=== PATIENT | female | born 1945 | race Caucasian/White ===

== ENCOUNTER 2019-02-19 14:44 | Outpatient (CLI) | payer MEDICARE, OTHER, SELFPAY ==
--- NOTE | 2019-02-19 14:54 | MR_ITS ---
WS: [id number] MRI HEAD WITHOUT CONTRAST TECHNIQUE: Sagittal T1, T2 axial, T2 axial FLAIR, axial and coronal T1 images, axial susceptibility w eighted imaging, axial diffusion weighted images, and coronal T2 images were obtained. CLINICAL INFORMATION: ABNORMAL MOUTH SENSATION;SENSORY DISTURBANCE;VULVAR CA;NUMBN COMPARISON: CT September 06, 2017 FINDINGS: No evidence of restricted diffusion to suggest acute ischemia. Ventricular system and basal cisterns are patent. Moderate small vessel changes. Small vessel changes in the sharona. Moderate parenchymal vol ume loss. A few chronic lacunar infarcts in the periventricular white matter. Normal vascular flow vo ids at the skull base. No hemosiderin on susceptibly weighted images. Normal optic chiasm and pituitary infundibulum. Mild s ymmetric atrophy involving the temporal lobes and hippocampal formations. MR/MR head wo con* [id number] IMPRESSION: 1. No evidence of restricted diffusion to suggest acute ischemia. 2. Moderate small vessel changes with moderate parenchymal volume loss. 3. A few chronic lacunar infarcts in the periventricular white matter. 4. No hemosiderin on susceptibly weighted images. 5. Mild symmetric atrophy involving the temporal lobes and hippocampal formati ons.
== END 2019-02-19 14:45 | disposition home or self-care (01) ==
LOC: RADSHAW 14:50
PROVIDERS: Family Provider Family Medicine; PCP Family Medicine; Visit Provider Nurse Practitioner Family
DX: I63.81 Other cerebral infarction due to occlusion or stenosis of small artery (principal); G31.89 Other specified degenerative diseases of nervous system; C51.9 Malignant neoplasm of vulva, unspecified; R44.8 Other symptoms and signs involving general sensations and perceptions; R20.9 Unspecified disturbances of skin sensation; R20.2 Paresthesia of skin
CPT/HCPCS: 70551

== ENCOUNTER 2019-04-08 17:43 | Emergency (ER) | payer MEDICARE, OTHER, SELFPAY ==
--- NOTE | 2019-04-08 17:46 | ED_ITS ---
Entered by Ángela Yeager, acting as scribe for Julius Anderson DO Documented by User: Barbara Hendricks 04/09/19 06:22 HPI - Syncope General: Chief Complaint: Syncope Stated Complaint: SYNCOPE, htn Time Seen by Provider: 04/08/19 17:45 [facility] ED PFSH: Medical History (Updated 04/08/19 @ 23:01 by Barbara Hendricks) Cancer Diabetes Heart disease Hyperlipemia Hypertension Social History Smoking and tobacco status: never smoked Course Vital Signs: Vital signs: Vital Signs Temperature 98.6 F 04/08/19 23:38 Pulse Rate 87 04/08/19 23:38 Respiratory Rate 20 H 04/08/19 23:38 Blood Pressure 136/62 04/08/19 23:38 Pulse Oximetry 95 04/08/19 23:38 MDM - Syncope MDM Narrative: Medical decision making narrative: The CT scans were discussed with the radiologist. He believes with the findings of necrotizing fasciitis are present as 9 days out postoperatively he does not believe the patient should have this much gas in the tissues. The patient does have pain there but she does not believe any worse than she should expect after surgery. With her el evated white count and these findings I believe the patient will need to be evaluated by her surgeon. We do not have gynecologic/oncologic surgery here. I attempted to reach Dr. anabel peoples by phone but was unable. I did discuss the case with Dr. Stroud in the emergency department and Cee Hunt in [place]. She understands the seriousness of the patient's findings and will accept her in transfer. [facility] is currently on his way to the patient. I will cover the patient with Cleocin, Zosyn as well as Flagyl. Lab Data: Attestation: I reviewed the patient's lab results. Labs: Lab Results 04/08/19 04/08/19 04/08/19 Range/Units 18:11 18:11 18:11 WBC 16.2 H (4.0-10.0) 10^3/ uL RBC 3.56 L (4.1-5.3) 10^6/u L Hgb 10.5 L (11.5-15.3) g/dL Hct 33.6 L (37.0-47.0) % MCV 94.4 (81-99) fL MCH 29.5 (28.0-34.0) pg MCHC 31.3 (30.0-36.0) g/dL RDW 12.6 (12.1-15.1) % Plt Count 296 (130-400) 10^3/c mm MPV 9.9 (7.4-10.4) fL Neut % (Auto) 83.1 % Lymph % (Auto) 7.5 % [place] % (Auto) 8.4 % Eos % (Auto) 0.1 % Baso % (Auto) 0.4 % Neut # (Auto) 13.5 H (1.8-7.7) 10^3/u L Lymph # (Auto) 1.2 (0.8-4.8) 10^3/u L [place] # (Auto) 1.4 H (0.2-0.9) 10^3/u L Eos # (Auto) 0.0 (0.0-0.8) 10^3/u L Baso # (Auto) 0.1 (0.0-0.1) 10^3/u L Nucleated RBC % (a uto) 0 % Nucleated RBCs # 0.0 /100WBC D-Dimer (0-0.59) ug/mIFE U Sodium 134 L (136-145) mmol/L Potassium 3.8 (3.5-5.1) mmol/L Chloride 98 (98-107) mmol/L Carbon Dioxide 23 (22-29) mmol/L Anion Gap 16.8 (5-19) BUN 17 (8-23) mg/dL Creatinine 1.1 H (0.5-0.9) mg/dL Glucose 229 H (65-115) mg/dL Lactic Acid (0.5-2.2) mmol/L Calcium 8.8 (8.5-10.5) mg/dL Total Bilirubin 0.5 (0.15-1.2) mg/dL AST 10 (0-32) U/L ALT 11 (0-33) U/L Alkaline Phosphata se 78 (35-105) IU/L Troponin T Baselin e 11 H (0-10) ng/mL Troponin T 120 Min [place] (0-10) ng/mL Delta Troponin T (0-10) ABS# Total Protein 6.5 L (6.6-8.7) g/dL Albumin 3.2 L (3.5-5.2) g/dL Globulin 3.3 (1.3-4.6) g/dL Urine Color (Yellow) Urine Appearance (CLEAR) Urine pH (5-7) Ur Specific Gravit y (1.005-1.030) Urine Protein (Negative) Urine Glucose (UA) (Normal) Urine Ketones (Negative) Urine Blood (Negative) Urine Nitrate (Negative) Urine Bilirubin (NEGATIVE) Urine Urobilinogen (Negative) mg/dL Ur Leukocyte Casandra ase (Negative) Urine RBC (0-2) /hpf Urine WBC (0-5) /hpf Ur Squamous Epith Cells (0-5) Amorphous Sediment Urine Bacteria (NONE) 04/08/19 04/08/19 04/08/19 Range/Units 18:11 20:15 22:33 WBC (4.0-10.0) 10^3/ uL RBC (4.1-5.3) 10^6/u L Hgb (11.5-15.3) g/dL Hct (37.0-47.0) % MCV (81-99) fL MCH (28.0-34.0) pg MCHC (30.0-36.0) g/dL RDW (12.1-15.1) % Plt Count (130-400) 10^3/c mm MPV (7.4-10.4) fL Neut % (Auto) % Lymph % (Auto) % [place] % (Auto) % Eos % (Auto) % Baso % (Auto) % Neut # (Auto) (1.8-7.7) 10^3/u L Lymph # (Auto) (0.8-4.8) 10^3/u L [place] # (Auto) (0.2-0.9) 10^3/u L Eos # (Auto) (0.0-0.8) 10^3/u L Baso # (Auto) (0.0-0.1) 10^3/u L Nucleated RBC % (a uto) % Nucleated RBCs # /100WBC D-Dimer 1.00 H (0-0.59) ug/mIFE U Sodium (136-145) mmol/L Potassium (3.5-5.1) mmol/L Chloride (98-107) mmol/L Carbon Dioxide (22-29) mmol/L Anion Gap (5-19) BUN (8-23) mg/dL Creatinine (0.5-0.9) mg/dL Glucose (65-115) mg/dL Lactic Acid (0.5-2.2) mmol/L Calcium (8.5-10.5) mg/dL Total Bilirubin (0.15-1.2) mg/dL AST (0-32) U/L ALT (0-33) U/L Alkaline Phosphata se (35-105) IU/L Troponin T Baselin e (0-10) ng/mL Troponin T 120 Min [place] 9.35 (0-10) ng/mL Delta Troponin T -1.65 L (0-10) ABS# Total Protein (6.6-8.7) g/dL Albumin (3.5-5.2) g/dL Globulin (1.3-4.6) g/dL Urine Color Yellow (Yellow) Urine Appearance Sl cloudy A (CLEAR) Urine pH 5 (5-7) Ur Specific Gravit y 1.015 (1.005-1.030) Urine Protein 1+ H (Negative) Urine Glucose (UA) Norm (Normal) Urine Ketones Negative (Negative) Urine Blood 3+ H (Negative) Urine Nitrate Positive H (Negative) Urine Bilirubin Neg (NEGATIVE) Urine Urobilinogen Norm (Negative) mg/dL Ur Leukocyte Casandra ase 2+ H (Negative) Urine RBC 5-10 H (0-2) /hpf Urine WBC 15-25 H (0-5) /hpf Ur Squamous Epith Cells 5-10 H (0-5) Amorphous Sediment 2+ Urine Bacteria 2+ H (NONE) 04/08/19 Range/Units 23:16 WBC (4.0-10.0) 10^3/ uL RBC (4.1-5.3) 10^6/u L Hgb (11.5-15.3) g/dL Hct (37.0-47.0) % MCV (81-99) fL MCH (28.0-34.0) pg MCHC (30.0-36.0) g/dL RDW (12.1-15.1) % Plt Count (130-400) 10^3/c mm MPV (7.4-10.4) fL Neut % (Auto) % Lymph % (Auto) % [place] % (Auto) % Eos % (Auto) % Baso % (Auto) % Neut # (Auto) (1.8-7.7) 10^3/u L Lymph # (Auto) (0.8-4.8) 10^3/u L [place] # (Auto) (0.2-0.9) 10^3/u L Eos # (Auto) (0.0-0.8) 10^3/u L Baso # (Auto) (0.0-0.1) 10^3/u L Nucleated RBC % (a uto) % Nucleated RBCs # /100WBC D-Dimer (0-0.59) ug/mIFE U Sodium (136-145) mmol/L Potassium (3.5-5.1) mmol/L Chloride (98-107) mmol/L Carbon Dioxide (22-29) mmol/L Anion Gap (5-19) BUN (8-23) mg/dL Creatinine (0.5-0.9) mg/dL Glucose (65-115) mg/dL Lactic Acid 1.1 (0.5-2.2) mmol/L Calcium (8.5-10.5) mg/dL Total Bilirubin (0.15-1.2) mg/dL AST (0-32) U/L ALT (0-33) U/L Alkaline Phosphata se (35-105) IU/L Troponin T Baselin e (0-10) ng/mL Troponin T 120 Min [place] (0-10) ng/mL Delta Troponin T (0-10) ABS# Total Protein (6.6-8.7) g/dL Albumin (3.5-5.2) g/dL Globulin (1.3-4.6) g/dL Urine Color (Yellow) Urine Appearance (CLEAR) Urine pH (5-7) Ur Specific Gravit y (1.005-1.030) Urine Protein (Negative) Urine Glucose (UA) (Normal) Urine Ketones (Negative) Urine Blood (Negative) Urine Nitrate (Negative) Urine Bilirubin (NEGATIVE) Urine Urobilinogen (Negative) mg/dL Ur Leukocyte Casandra ase (Negative) Urine RBC (0-2) /hpf Urine WBC (0-5) /hpf Ur Squamous Epith Cells (0-5) Amorphous Sediment Urine Bacteria (NONE) EKG Data^: EKG 1: Attestation: I personally reviewed and interpreted this EKG as follows: EKG interpretation date: 04/08/19 EKG interpretation time: 21:02 Interpretation: Normal sinus rhythm at 87 beats a minute, no acute ST-T wave changes. Normal intervals, no blocks. Unchanged from previous. Discharge Plan Discharge Patient Disposition: Xfer Short-Term Hosp Clinical Impression: Necrotizing fasciitis Syncope Qualifiers: Syncope type: unspecified Qualified Code(s): R55 - Syncope and collapse Condition: Stable Referrals: Paula Hicks MD [Primary Care Provider] - Discharge Date/Time: 04/08/19 23:39 Sign Out Sign Out Data: Patient Sign Out occurred on 04/08/19 at 19:57. Patient's care was discussed, and care was transferred from Julius Anderson DO to Barbara Hendricks. Sign Out Comment: Labs pending signed out to Dr. Hayward Last updated by Julius Anderson DO at 04/08/19 19:17 Coding Level of Care Code ED Fibre Technologist for Chg Fwd Exam Comprehensive Documented by User: Julius Anderson DO 04/10/19 07:41 HPI - Syncope General: Chief Complaint: Syncope Stated Complaint: SYNCOPE, htn Time Seen by Provider: 04/08/19 17:45 History of Present Illness: HPI narrative: 73 yo female presents with syncope. 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 This was done by Dr. anabel peoples in [place].. Pt states that she feels weak. Pt states that she has been bloated. She states she has a lot of postop tenderness in the groin and perineal area. She has had some chills she is not recorded a fever at all. She has had some abdominal pain and bloating her bowels and bladder have been working regularly. States no dysuria urgency or frequency. She is afebrile on arrival here. complaint: loss of consciousness Onset (ago): day(s) (2) Prodromal symptoms: shortness of breath Associated symptoms: Reports abdominal pain, lightheadedness, nausea, short of breath and other (chills) Review of Systems 2 Const: Reports: chills and malaise ENMT: Denies: throat pain, ear pain, nasal discharge or nasal congestion Card: Reports: lightheadedness Resp: Denies: shortness of breath, productive cough or non-productive cough GI: Reports: abdominal pain, nausea and bloating; Denies: vomiting, vomiting blood, coffee grounds in vomit, blood in stool or black tarry stool : Denies: flank pain, difficulty urinating, painful urination, urinary frequency or urinary urgency Skin/Breast: Denies: rash or itching PFSH ED PFSH: Medical History (Updated 04/08/19 @ 23:01 by Barbara Hendricks) Cancer Diabetes Heart disease Hyperlipemia Hypertension Social History Smoking and tobacco status: never smoked Physical Exam Const: COMMON NORMALS: average body habitus, oriented x3 and alert GENERAL APPEARANCE: cooperative, well kempt, lethargic and ill appearing NUTRITIONAL APPEARANCE: not obese ORIENTATION/CONSCIOUSNESS: Yes awake, Yes oriented to person, Yes oriented to place and Yes lethargic HENMT: COMMON NORMALS: normocephalic, head/scalp atraumatic, EAC's normal, TM's normal bilaterally, external nose normal, moist oral mucous membranes and oropharynx normal HEAD & SCALP: normocephalic and atraumatic NOSE: external nose normal EXTERNAL AUDITORY CANAL: EAC's normal TYMPANIC MEMBRANE: TM's normal bilaterally MOUTH: oral and palatal mucosa normal, lip normal and tongue normal THROAT: posterior oropharynx normal and tonsils normal Eye: COMMON NORMALS: PERRL, EOMs intact bilaterally, conjunctivae normal and no scleral icterus CONJUNCTIVA: Yes conjunctivae normal PUPIL: Yes PERRL Neck/C-Spine: COMMON NORMALS: full ROM, no lymphadenopathy, supple, no meningeal signs and thyroid normal THYROID: thyroid normal and asymmetrical Lymph: LYMPHATIC: no lymphadenopathy noted Resp: COMMON NORMALS: normal respiratory effort, no retractions, no use of accessory muscles and clear to auscultation bilaterally AUSCULTATION: clear to auscultation bilaterally Cardio: COMMON NORMALS: regular rate and regular rhythm RATE: regular rate RHYTHM: regular rhythm HEART SOUNDS: no murmurs GI: COMMON NORMALS: normal to inspection, nondistended, normoactive bowel soun ds, soft to palpation and no hepatosplenomegaly PALPATION: Yes soft and Yes no hepatosplenomegaly : COMMON NORMALS: Yes no CVA tenderness BLADDER/KIDNEY EXAM: Yes no CVA tenderness OTHER: Incision sites on the inguinal area and sending into the groin appears clean there is no erythema there is no drainage there moderately tender to the touch particularly at the ends groin area. There is mild induration appears chronic. Back/Pelvis: COMMON NORMALS: no CVA tenderness LUMBAR SPINE/LOWER BACK: Yes normal to inspection Extremity: COMMON NORMALS: no clubbing, cyanosis or edema, no calf tenderness and no pedal edema Neuro: COMMON NORMALS: oriented x3 SENSORIUM/ORIENTATION: Yes alert, Yes oriented to person, Yes oriented to place and Yes lethargic MENINGEAL SIGNS: Yes no meningeal signs Psych: APPEARANCE: Yes well kempt Skin: COMMON NORMALS: no rashes or lesions noted and skin turgor normal GENERAL SKIN EXAM: no rashes or lesions noted and turgor normal Course ED course: Labs and imaging are pending discussed with Dr. Hayward he will assume care at change of shift. Vital Signs: Vital signs: Vital Signs Temperature 98.6 F 04/08/19 23:38 Pulse Rate 87 04/08/19 23:38 Respiratory Rate 20 H 04/08/19 23:38 Blood Pressure 136/62 04/08/19 23:38 Pulse Oximetry 95 04/08/19 23:38 MDM - Syncope Lab Data: Labs: Lab Results 04/08/19 04/08/19 04/08/19 Range/Units 18:11 18:11 18:11 WBC 16.2 H (4.0-10.0) 10^3/ uL RBC 3.56 L (4.1-5.3) 10^6/u L Hgb 10.5 L (11.5-15.3) g/dL Hct 33.6 L (37.0-47.0) % MCV 94.4 (81-99) fL MCH 29.5 (28.0-34.0) pg MCHC 31.3 (30.0-36.0) g/dL RDW 12.6 (12.1-15.1) % Plt Count 296 (130-400) 10^3/c mm MPV 9.9 (7.4-10.4) fL Neut % (Auto) 83.1 % Lymph % (Auto) 7.5 % [place] % (Auto) 8.4 % Eos % (Auto) 0.1 % Baso % (Auto) 0.4 % Neut # (Auto) 13.5 H (1.8-7.7) 10^3/u L Lymph # (Auto) 1.2 (0.8-4.8) 10^3/u L [place] # (Auto) 1.4 H (0.2-0.9) 10^3/u L Eos # (Auto) 0.0 (0.0-0.8) 10^3/u L Baso # (Auto) 0.1 (0.0-0.1) 10^3/u L Nucleated RBC % (a uto) 0 % Nucleated RBCs # 0.0 /100WBC D-Dimer (0-0.59) ug/mIFE U Sodium 134 L (136-145) mmol/L Potassium 3.8 (3.5-5.1) mmol/L Chloride 98 (98-107) mmol/L Carbon Dioxide 23 (22-29) mmol/L Anion Gap 16.8 (5-19) BUN 17 (8-23) mg/dL Creatinine 1.1 H (0.5-0.9) mg/dL Glucose 229 H (65-115) mg/dL Lactic Acid (0.5-2.2) mmol/L Calcium 8.8 (8.5-10.5) mg/dL Total Bilirubin 0.5 (0.15-1.2) mg/dL AST 10 (0-32) U/L ALT 11 (0-33) U/L Alkaline Phosphata se 78 (35-105) IU/L Troponin T Baselin e 11 H (0-10) ng/mL Troponin T 120 Min [place] (0-10) ng/mL Delta Troponin T (0-10) ABS# Total Protein 6.5 L (6.6-8.7) g/dL Albumin 3.2 L (3.5-5.2) g/dL Globulin 3.3 (1.3-4.6) g/dL Urine Color (Yellow) Urine Appearance (CLEAR) Urine pH (5-7) Ur Specific Gravit y (1.005-1.030) Urine Protein (Negative) Urine Glucose (UA) (Normal) Urine Ketones (Negative) Urine Blood (Negative) Urine Nitrate (Negative) Urine Bilirubin (NEGATIVE) Urine Urobilinogen (Negative) mg/dL Ur Leukocyte Casandra ase (Negative) Urine RBC (0-2) /hpf Urine WBC (0-5) /hpf Ur Squamous Epith Cells (0-5) Amorphous Sediment Urine Bacteria (NONE) 04/08/19 04/08/19 04/08/19 Range/Units 18:11 20:15 22:33 WBC (4.0-10.0) 10^3/ uL RBC (4.1-5.3) 10^6/u L Hgb (11.5-15.3) g/dL Hct (37.0-47.0) % MCV (81-99) fL MCH (28.0-34.0) pg MCHC (30.0-36.0) g/dL RDW (12.1-15.1) % Plt Count (130-400) 10^3/c mm MPV (7.4-10.4) fL Neut % (Auto) % Lymph % (Auto) % [place] % (Auto) % Eos % (Auto) % Baso % (Auto) % Neut # (Auto) (1.8-7.7) 10^3/u L Lymph # (Auto) (0.8-4.8) 10^3/u L [place] # (Auto) (0.2-0.9) 10^3/u L Eos # (Auto) (0.0-0.8) 10^3/u L Baso # (Auto) (0.0-0.1) 10^3/u L Nucleated RBC % (a uto) % Nucleated RBCs # /100WBC D-Dimer 1.00 H (0-0.59) ug/mIFE U Sodium (136-145) mmol/L Potassium (3.5-5.1) mmol/L Chloride (98-107) mmol/L Carbon Dioxide (22-29) mmol/L Anion Gap (5-19) BUN (8-23) mg/dL Creatinine (0.5-0.9) mg/dL Glucose (65-115) mg/dL Lactic Acid (0.5-2.2) mmol/L Calcium (8.5-10.5) mg/dL Total Bilirubin (0.15-1.2) mg/dL AST (0-32) U/L ALT (0-33) U/L Alkaline Phosphata se (35-105) IU/L Troponin T Baselin e (0-10) ng/mL Troponin T 120 Min [place] 9.35 (0-10) ng/mL Delta Troponin T -1.65 L (0-10) ABS# Total Protein (6.6-8.7) g/dL Albumin (3.5-5.2) g/dL Globulin (1.3-4.6) g/dL Urine Color Yellow (Yellow) Urine Appearance Sl cloudy A (CLEAR) Urine pH 5 (5-7) Ur Specific Gravit y 1.015 (1.005-1.030) Urine Protein 1+ H (Negative) Urine Glucose (UA) Norm (Normal) Urine Ketones Negative (Negative) Urine Blood 3+ H (Negative) Urine Nitrate Positive H (Negative) Urine Bilirubin Neg (NEGATIVE) Urine Urobilinogen Norm (Negative) mg/dL Ur Leukocyte Casandra ase 2+ H (Negative) Urine RBC 5-10 H (0-2) /hpf Urine WBC 15-25 H (0-5) /hpf Ur Squamous Epith Cells 5-10 H (0-5) Amorphous Sediment 2+ Urine Bacteria 2+ H (NONE) 04/08/19 Range/Units 23:16 WBC (4.0-10.0) 10^3/ uL RBC (4.1-5.3) 10^6/u L Hgb (11.5-15.3) g/dL Hct (37.0-47.0) % MCV (81-99) fL MCH (28.0-34.0) pg MCHC (30.0-36.0) g/dL RDW (12.1-15.1) % Plt Count (130-400) 10^3/c mm MPV (7.4-10.4) fL Neut % (Auto) % Lymph % (Auto) % [place] % (Auto) % Eos % (Auto) % Baso % (Auto) % Neut # (Auto) (1.8-7.7) 10^3/u L Lymph # (Auto) (0.8-4.8) 10^3/u L [place] # (Auto) (0.2-0.9) 10^3/u L Eos # (Auto) (0.0-0.8) 10^3/u L Baso # (Auto) (0.0-0.1) 10^3/u L Nucleated RBC % (a uto) % Nucleated RBCs # /100WBC D-Dimer (0-0.59) ug/mIFE U Sodium (136-145) mmol/L Potassium (3.5-5.1) mmol/L Chloride (98-107) mmol/L Carbon Dioxide (22-29) mmol/L Anion Gap (5-19) BUN (8-23) mg/dL Creatinine (0.5-0.9) mg/dL Glucose (65-115) mg/dL Lactic Acid 1.1 (0.5-2.2) mmol/L Calcium (8.5-10.5) mg/dL Total Bilirubin (0.15-1.2) mg/dL AST (0-32) U/L ALT (0-33) U/L Alkaline Phosphata se (35-105) IU/L Troponin T Baselin e (0-10) ng/mL Troponin T 120 Min [place] (0-10) ng/mL Delta Troponin T (0-10) ABS# Total Protein (6.6-8.7) g/dL Albumin (3.5-5.2) g/dL Globulin (1.3-4.6) g/dL Urine Color (Yellow) Urine Appearance (CLEAR) Urine pH (5-7) Ur Specific Gravit y (1.005-1.030) Urine Protein (Negative) Urine Glucose (UA) (Normal) Urine Ketones (Negative) Urine Blood (Negative) Urine Nitrate (Negative) Urine Bilirubin (NEGATIVE) Urine Urobilinogen (Negative) mg/dL Ur Leukocyte Casandra ase (Negative) Urine RBC (0-2) /hpf Urine WBC (0-5) /hpf Ur Squamous Epith Cells (0-5) Amorphous Sediment Urine Bacteria (NONE) Discharge Plan Discharge Patient Disposition: Xfer Short-Term Hosp Clinical Impression: Necrotizing fasciitis Syncope Qualifiers: Syncope type: unspecified Qualified Code(s): R55 - Syncope and collapse Condition: Stable Referrals: Paula Hicks MD [Primary Care Provider] - Discharge Date/Time: 04/08/19 23:39 Sign Out Sign Out Data: Patient Sign Out occurred on 04/08/19 at 19:57. Patient's care was discussed, and care was transferred from Julius Anderson DO to Barbara Hendricks. Sign Out Comment: Labs pending signed out to Dr. Hayward Last updated by Julius Anderson DO at 04/08/19 19:17 Coding Level of Care Code ED Fibre Technologist for Chg Fwd Exam Comprehensive The documentation recorded by the Toy wahl Kialy, accurately reflects the service I personally performed and the decisions made by Monica parrish Curtis L, DO Apr 08, 2019 17:43
[2019-04-08 17:55] VITALS: BP 112/59; PULSE 90; RESP 18; TEMP 36.6; O2SAT 98; BMI 30.9
--- NOTE | 2019-04-08 17:56 | XR_ITS ---
WS: [id number] Acute abdomen series, 04/08/2019 Clinical Data: abd distention Comparison: Portable chest, 09/06/2017. Findings: In the chest there are no nodules, masses or effusions. The heart is normal. The pulmonary vascularity is not increased. The aortic arch and descending aorta are tortuous. There is an artifact overlying the left chest. No free air is seen beneath the diaphragms. No abnormal intra-abdominal masses or calcifications are seen. There is air in the stomach and colon but there is no bowel dilatation. Clips in the right uppe r quadrant from a cholecystectomy are present. There are bilateral clips in the inguinal region from surgery. 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 XR/XR acute abdomen series [id number] Impression: 1. Atherosclerosis. 2. Mild generalized ileus.
[2019-04-08 18:18] LABS: Basophils # 0.1 10^3/uL (0.0-0.1); Basophils % 0.4 %; Eosinophils % 0.1 %; Hematocrit 33.6 % (37.0-47.0); Hemoglobin 10.5 g/dL (11.5-15.3); Lymphocytes # 1.2 10^3/uL (0.8-4.8); Lymphocytes % 7.5 %; Mean Corpuscular HGB Conc 31.3 g/dL (30.0-36.0); Mean Corpuscular Hemoglobin 29.5 pg (28.0-34.0); Mean Corpuscular Volume 94.4 fL (81-99); Mean Platelet Volume 9.9 fL (7.4-10.4); Monocytes # 1.4 10^3/uL (0.2-0.9); Monocytes % 8.4 %; Neutrophils # 13.5 10^3/uL (1.8-7.7); Neutrophils % 83.1 %; Nucleated Red Blood Cells % 0 %; Platelet Count 296 10^3/cmm (130-400); Red Blood Count 3.56 10^6/uL (4.1-5.3); Red Cell Distribution Width 12.6 % (12.1-15.1); White Blood Count 16.2 10^3/uL (4.0-10.0)
--- NOTE | 2019-04-08 18:21 | PC.NURSE ---
Pt released from hospital yesterday after having several lymph nodes removed from groin. Pt was at home today and stood up and had a syncopal episode. Pt was caught and laid to the floor without any injuries occuring. Pt was out apparently for a couple of minutes.
[2019-04-08 18:35] LABS: Alanine Aminotransferase 11 U/L (0-33); Albumin Level 3.2 g/dL (3.5-5.2); Alkaline Phosphatase 78 IU/L (35-105); Anion Gap 16.8 (5-19); Aspartate Amino Transferase 10 U/L (0-32); Blood Urea Nitrogen 17 mg/dL (8-23); Calcium 8.8 mg/dL (8.5-10.5); Carbon Dioxide 23 mmol/L (22-29); Chloride 98 mmol/L (98-107); Creatinine Clr Calc Pharmacy 44.7607; Globulin 3.3 g/dL (1.3-4.6); Glucose 229 mg/dL (65-115); Potassium 3.8 mmol/L (3.5-5.1); Sodium 134 mmol/L (136-145); Total Bilirubin 0.5 mg/dL (0.15-1.2); Total Protein 6.5 g/dL (6.6-8.7)
[2019-04-08] MEDS: sodium chloride 0.9% 1,000 ML 999 ML IV (19:00)
--- NOTE | 2019-04-08 19:02 | PC.NURSE ---
report received from ADOLFO Bolanos. Assumed nursing care at this time
[2019-04-08 20:13] VITALS: BP 116/59; PULSE 87; RESP 21; O2SAT 97
[2019-04-08 20:26] LABS: Troponin(5th) Baseline 11 ng/mL (0-10)
[2019-04-08 20:35] VITALS: BP 113/68; PULSE 78
[2019-04-08 20:38] LABS: Troponin 5 2HR 9.35 ng/mL (0-10); Troponin 5 2HR Delta -1.65 ABS# (0-10)
--- NOTE | 2019-04-08 20:53 | CTR_ITS ---
PROCEDURE INFORMATION: Exam: CT Angiography Chest With Contrast Exam date and time: 04/08/2019 9:00 PM Age: 73 years old Clinical indication: Dyspnea; Prior surgery; Surgery date: 3-7 days post-operative; Surgery type: Radical vulvectomy x1 wk ago, loop recorder xseveral yrs, PT came into er with abd pain/distention; Additional info: Dyspnea/syncope TECHNIQUE: Imaging protocol: Computed tomographic angiography of the chest with intravenous contrast. 3D rendering: MIP and/or 3D reconstructed images were created by the technologist. Total DLP: 1576.89 mGy-cm Radiation optimization: All CT scans at this facility use at least one of these dose optimization techniques: automated exposure control; mA and/or kV adjustment per patient size (includes targeted exams where dose is matched to clinical indication); or iterative reconstruction. Contrast material: VISIPAQUE 320; Contrast volume: 95 ml; Contrast route: IV; COMPARISON: CR Chest 1 [place] [id number] 09/06/2017 4:09 PM FINDINGS: Pulmonary arteries: Normal. No pulmonary emboli. Aorta: Unremarkable. No aortic aneurysm. No aortic dissection. Thyroid: 3.8 cm mixed solid and cystic lesion in the superior left mediastinum, just inferior to the thyroid gland. Lungs: Calcified granuloma in the right middle lobe. Mild subpleural atelectasis. The lungs are otherwise clear. Pleural space: Unremarkable. No pneumothorax. No pleural effusion. Heart: Unremarkable. No cardiomegaly. No pericardial effusion. Lymph nodes: Multiple subcentimeter mediastinal and bilateral hilar lymph nodes. Calcified mediastinal and hilar lymph nodes. Bones/joints: Unremarkable. No acute fracture. Soft tissues: Unremarkable. IMPRESSION: 1. No evidence for pulmonary embolus. 2. 3.8 cm solid and cystic lesion in the superior left mediastinum appears separate from the thyroid gland. This could represent a necrotic metastatic lymph node or lymphoma. 3. Small mediastinal and hilar lymph nodes are most likely reactive. COMMENTS: Consistent with the [employer]'s Incidental Findings Committee white paper (J Am Kevin Radiol 2015): In patients aged 35 years and older with an incidental thyroid nodule equal to or greater than 1.[address], MRI or extrathyroidal US, further evaluation with dedicated thyroid US is recommended for patients with normal life expectancy and without comorbidities. For smaller nodules without suspicious features, no further evaluation or follow up is recommended. PROCEDURE INFORMATION: Exam: CT Abdomen And Pelvis With Contrast Exam date and time: 04/08/2019 9:00 PM Age: 73 years old Clinical indication: Dyspnea; Prior surgery; Surgery date: 3-7 days post-operative; Surgery type: Radical vulvectomy x1 wk ago, loop recorder xseveral yrs, PT came into er with abd pain/distention; Additional info: Dyspnea/syncope TECHNIQUE: Imaging protocol: Computed tomography of the abdomen and pelvis with intravenous contrast. COMPARISON: CR Chest 1 [place] [id number] 09/06/2017 4:09 PM FINDINGS: Liver: Normal. No mass. Gallbladder and bile ducts: Cholecystectomy. Bile ducts are normal. Pancreas: Normal. No ductal dilation. Spleen: Calcified granulomas in the spleen. Adrenals: Normal. No mass. Kidneys and ureters: Old cortical defects in the right kidney. The 3.5 cm left renal cyst. Stomach and bowel: Moderate stool in the distal colon and rectum. The stomach and small bowel are unremarkable. Appendix: The appendix is not visualized. Intraperitoneal space: Unremarkable. No free air. No significant fluid collection. Vasculature: Unremarkable. No abdominal aortic aneurysm. Lymph nodes: Unremarkable. No enlarged lymph nodes. Bladder: Unremarkable as visualized. Reproductive: Unremarkable as visualized. Bones/joints: No compression fracture. Soft tissues: Surgical clips in the bilateral groins. Fluid and scattered gas bubbles in the bilateral groin regions extending to the pubic mons and anterior to the pubic symphyseal joint. These fluid collections measure a maximum length of 7.6 cm on the right and 7.0 cm on the left with subtle peripheral enhancement. CT/CT angio chest w abd pel w con IMPRESSION: 1. Fluid collections with gas bubbles in the bilateral groins suspicious for infection and early abscess formation. 2. Soft tissue gas extending to the pubic mons region could represent necrotizing fasciitis. Radiation Dose CTDIVOL = (mGy): DLP = 1576.89 (mGy-cm)
[2019-04-08] MEDS: iodixanol 320 mg/mL 100mL Btl IV (20:59)
--- NOTE | 2019-04-08 21:00 | PC.NURSE ---
pt refusing flu swabs and further tests at this time
--- NOTE | 2019-04-08 21:05 | PC.NURSE ---
pt to ct by stretcher with tech
[2019-04-08 21:35] VITALS: BP 113/66; PULSE 87; RESP 24; O2SAT 96
--- NOTE | 2019-04-08 21:59 | ECG_ITS ---
Measurements Intervals [place] Rate: 87 P: 52 VT: 124 QRS: 34 QRSD: 110 T: 36 QT: 381 QTc: 460 SINUS RHYTHM POSSIBLE INFERIOR MYOCARDIAL INFARCTION , PROBABLY OLD [30 ms Q WAVE IN II/aVF] Compared to ECG 09/06/2017 15:14:36 No significant changes Electronically Signed On 04-09-2019 6:36:52 ASSISTANT NEWS DIRECTOR by Rosario Taylor M.D. [email or web address]
--- NOTE | 2019-04-08 22:07 | PC.NURSE ---
nurse dev ops engineer with ED physician for rectal exam .
[2019-04-08] MEDS: clindamycin 900 MG/50 ML PREMIX 100 MG IV (23:09)
[2019-04-08 23:11] VITALS: BP 136/62; PULSE 88; RESP 26; O2SAT 95
[2019-04-08 23:28] LABS: Urine Color Yellow (Yellow)
[2019-04-08 23:29] LABS: Add Urine Microscopic? YES; Bilirubin Urine Neg (NEGATIVE); Blood Urine 3+ (Negative); Glucose Urine UA Norm (Normal); Ketones Urine Negative (Negative); Leukocyte Esterase Urine 2+ (Negative); Nitrate Urine Positive (Negative); Protein Urine 1+ (Negative); Specific Gravity, Urine 1.015 (1.005-1.030); Urobilinogen Urine Norm (Negative); pH Urine 5 (5-7)
[2019-04-08 23:30] LABS: Add Urine Culture? Yes; Amorphous Sediment Urine 2+; Bacteria Urine 2+; WBC Urine 15-25 /hpf (0-5)
[2019-04-08] MEDS: metroNIDAZOLE IV 500 MG/100 ML PREMIX 100 MG IV (23:37)
[2019-04-08] MEDS: piperacillin-tazobactam 3.375 GM in sodium chloride 0.9% (plus) 50 ML IV (23:37)
[2019-04-08] MEDS: sodium chloride 0.9% 2,381.37 ML 2381.4 ML IV (23:37)
[2019-04-08 23:38] VITALS: BP 136/62; PULSE 87; RESP 20; TEMP 37; O2SAT 95
[2019-04-08 23:40] LABS: Lactic Sepsis W/Reflex 1.1 mmol/L (0.5-2.2)
== END 2019-04-08 23:39 | disposition short-term general hospital (02) ==
PROVIDERS: Family Medicine; Emergency Provider Emergency Medicine; Family Provider Family Medicine; PCP Family Medicine
DX: M72.6 Necrotizing fasciitis (principal); R55 Syncope and collapse; E11.9 Type 2 diabetes mellitus without complications; I11.9 Hypertensive heart disease without heart failure; E78.5 Hyperlipidemia, unspecified; Z85.44 Personal history of malignant neoplasm of other female genital organs; Z90.79 Acquired absence of other genital organ(s)
CPT/HCPCS: 36415; 71275; 74022; 74177; 80053; 81001; 83605; 84484; 85025; 85378; 87077; 87086; 87186; 93005; 96360; 96365; 96367; 96368; 99284; 99285; J2543; J3490; J7030; Q9967; S0030

== ENCOUNTER 2020-02-03 09:47 | Outpatient (CLI) | payer MEDICARE, OTHER, SELFPAY ==
--- NOTE | 2020-02-03 09:50 | USCV_ITS ---
Valerie Alcantara Age: 74 Gender: F : 1945 Exam Date: 02/03/2020 10:05 Ordering Phys: Uzma LindsayP [employer]CR[employer]ING [employer] DRIVER Technologist: Micaela Norris [place] [facility] [place]: SYNCOPE BP: 129 / 59 HR: 69 Rhythm: Sinus Technical Quality: Adequate MEASUREMENTS (Male / Female) Normal Values 2D ECHO LV Diastolic Diameter PLAX 5.2 cm 4.2 - 5.9 / 3.9 - 5.3 cm LV Systolic Diameter PLAX 2.3 cm LV Chamber Size 3.0 cm IVS Diastolic Thickness 1.6 cm 0.6 - 1.0 / 0.6 - 0.9 cm IVS Systolic Thickness 1.7 cm LVPW Diastolic Thickness 1.3 cm 0.6 - 1.0 / 0.6 - 0.9 cm LVPW Systolic Thickness 1.7 cm RV Chamber Size 2.9 cm LVOT Diameter 2.0 cm LV Ejection Fraction 2D Teich 86.8 % LV Ejection Fraction MOD 2C 59.2 % LV Ejection Fraction 2C AL 59.0 % LA Diameter 3.5 cm LA Width 3.1 cm LA Height 4.1 cm RA Width 2.7 cm RA Height 4.0 cm Aorta at Sinotubular Diameter 3.3 cm M-MODE LV Diastolic Diameter MM 4.0 cm 4.2 - 5.9 / 3.9 - 5.3 cm LV Systolic Diameter MM 2.8 cm LV Ejection Fraction MM Teich 60.1 % IVS Diastolic Thickness MM 1.0 cm 0.6 - 1.0 / 0.6 - 0.9 cm IVS Systolic Thickness MM 1.5 cm LVPW Diastolic Thickness MM 1.3 cm 0.6 - 1.0 / 0.6 - 0.9 cm LVPW Systolic Thickness MM 1.5 cm RV Diastolic Diameter MM 0.7 cm Aortic Annulus Diameter 3.6 cm LA Ao Ratio MM 1.0 DOPPLER AV Peak Velocity 141.0 cm/s LVOT Peak Velocity 79.0 cm/s AV Area Cont Eq vti 2.1 cm squared AV Area Cont Eq pk 1.8 cm squared MV Area PHT 3.7 cm squared Mitral E to A Ratio 0.7 MV E' Velocity 41.0 cm/s Mitral E to MV E' Ratio 8.3 Mitral E to LV E' Lateral Ratio 9.1 Mitral E to LV E' Septal Ratio 7.7 TR Peak Velocity 236.1 cm/s TR Peak Gradient 22.3 mmHg TR Mean Velocity 175.2 cm/s TR Mean Gradient 14.4 mmHg TR Velocity Time Integral 65.0 cm TV Peak E Velocity 50.0 cm/s Right Atrial Pressure 3.0 mmHg Pulmonary Artery Systolic Pressu 25.3 mmHg PV Peak Velocity 70.0 cm/s RV Acceleration Time 0.1 s RV Ejection Time 0.3 s RV AcT/ET 0.4 FINDINGS Left Ventricle Normal left ventricular size, systolic function and wall thickness, with no regional wall motion abnormalities. Left ventricular ejection fraction is estimated at 60-65 %. Grade I diastolic dysfunction (abnormal relaxation filling pattern), normal to mildly elevated filling pressures. Right Ventricle Normal right ventricular size and systolic function. Right ventricular systolic pressure 31 mmHg. Right Atrium Normal right atrial size. Right atrial pressure estimated at 3 mm Hg. Left Atrium Mildly increased left atrial size. Mitral Valve Structurally normal mitral valve. No mitral valve stenosis. Mild to moderate mitral valve regurgitation. Aortic Valve Structurally normal trileaflet aortic valve. No aortic valve stenosis. No aortic valve regurgitation. Tricuspid Valve Structurally normal tricuspid valve. No tricuspid valve stenosis. Mild tricuspid valve regurgitation. Pulmonic Valve Pulmonic valve not well visualized. No pulmonary valve stenosis. Trace pulmonary valve regurgitation. Pericardium No pericardial effusion. Aorta Normal size aortic root and proximal ascending aorta. Normal sized inferior vena cava. CONCLUSIONS 1. Normal left ventricular size, systolic function and wall thickness, with no regional wall motion abnormalities. Left ventricular ejection fraction is estimated at 60-65 %. Grade I diastolic dysfunction (abnormal relaxation filling pattern), normal to mildly elevated filling pressures. 2. Normal right ventricular size and systolic function. 3. Pulmonary artery pressure estimated at 31 mm Hg. 4. Right atrial pressure estimated at 3 mm Hg. 5. Mild to moderate mitral valve regurgitation. 6. When compared to previous echocardiogram dated 01/29/2019, there may not have been any significant change. Rosario Taylor MD (Electronically Signed) Final Date: 07 February 2020 18:18 S
== END 2020-02-03 09:48 | disposition home or self-care (01) ==
LOC: US 09:47
PROVIDERS: PCP Internal Medicine; Visit Provider Nurse Practitioner Family
DX: R55 Syncope and collapse (principal); I34.0 Nonrheumatic mitral (valve) insufficiency
CPT/HCPCS: 93306

== ENCOUNTER 2020-04-20 15:06 | Outpatient (CLI) | payer MEDICARE, OTHER, SELFPAY ==
--- NOTE | 2020-04-20 15:13 | XR_ITS ---
WS: [id number] Chest 2 views, 04/20/2020 Clinical Data: COUGH/DYSPNEA Comparison: Portable chest, 09/06/2017. Findings: No nodules, masses or effusions are seen. The heart is normal. The pulmonary vascularity is not increased. No pneumonia or pneumothorax is seen. The aortic arch and descending aorta are tortuo us. There is a small electronic device overlying the left chest. There are clips in the right upper q uadrant from a cholecystectomy. XR/XR chest 2V* [id number] Impression: Atherosclerosis.
== END 2020-04-20 15:07 | disposition home or self-care (01) ==
PROVIDERS: PCP Internal Medicine; Visit Provider Nurse Practitioner Family
DX: R05 Cough (principal); R06.00 Dyspnea, unspecified; I70.90 Unspecified atherosclerosis
CPT/HCPCS: 71046

== ENCOUNTER 2023-01-14 10:52 | Outpatient (CLI) | payer MEDICARE, OTHER, SELFPAY ==
--- NOTE | 2023-01-14 11:02 | XRR_ITS ---
PROCEDURE INFORMATION: Exam: XR Bilateral Knees, Standing, Anteroposterior Exam date and time: 01/14/2023 11:11 AM Age: 77 years old Clinical indication: Pain; Bilateral; Prior surgery; Surgery date: 6+ months; Surgery type: Left knee scope; Additional info: Primary osteoarthritis of both knees TECHNIQUE: Imaging protocol: Radiologic exam of the bilateral knees. Views: Standing frontal. COMPARISON: No relevant prior studies available. FINDINGS: Bones/joints: Near bone on bone medial compartment narrowing, mild tricompartment spurring, greatest medially. No erosive changes. No fracture or dislocation. Soft tissues: Normal. XR/[place] [id number] IMPRESSION: Osteoarthritis.
== END 2023-01-14 10:53 | disposition home or self-care (01) ==
LOC: RAD 10:53
PROVIDERS: PCP Internal Medicine; Visit Provider Internal Medicine
DX: M17.0 Bilateral primary osteoarthritis of knee (principal)
CPT/HCPCS: 73565

== ENCOUNTER 2024-06-25 05:39 | Emergency (ER) | payer MEDICARE, OTHER, SELFPAY ==
[2024-06-25] VITALS (16 sets, daily range): BP systolic 92–192; BP diastolic 56–132; PULSE 70–145; RESP 20–32; TEMP 36.2; O2SAT 88–98; BMI 29.8
--- NOTE | 2024-06-25 05:45 | ED_ITS ---
HPI - SOB/Dyspnea 2 General: Chief Complaint: Shortness of Breath/Dyspnea Stated Complaint: Chest Pain Time Seen by Provider: 06/25/24 05:45 History of Present Illness: HPI Narrative: 79-year-old female presents emergency ro om complaining of shortness of breath and rapid heart rate. Patient has a known history of coronary disease she denies chest pain to me she does states she has shortness of breath with any exertion and she has orthopnea improved by sitting up. She was short of breath yesterday had mild nonproductive cough. She denies any DVT or PE in the past she has not had any hemoptysis. No recent medication changes she is taking all her medications regularly has not taken this morning's medications. No vomiting no diarrhea no dysuria urgency or frequency no fevers at home. She has felt very congested in her chest in addition to the cough. Associated symptoms: Deny abdominal pain, chest pain or fever(s) Related Data Home Medications ?Medication ?Instructions ?Recorded ?Confirmed carvedilol 25 mg tablet 25 mg PO DAILY 04/08/1906/11 aspirin 81 mg tablet,delayed 81 mg PO DAILY 06/25/24 0 06/25/24 release atorvastatin 40 mg tablet 40 mg PO DAILY 06/25/2406/11 glipizide 10 mg tablet 10 mg PO DAILY 06/25/2406/11 levothyroxine 137 mcg tablet 137 mcg PO DAILY 06/25/24 06/25/24 Allergies Allergy/AdvReac Type Severity Reaction Status Date / Time clopidogrel (From Plavix) Allergy ALGY-Hives Verified 04/08/19 18:01 scopolamine Allergy Unknown Verified 04/08/19 18:01 Review of Systems 2 Const: Denies: fever(s) or chills Card: Reports: dyspnea on exertion; Denies: chest pain Resp: Reports: dyspnea GI: Denies: abdominal pain : Denies: dysuria, urinary frequency or urinary urgency Musc: Denies: neck pain or back pain Skin/Breast: Denies: rash PFSH ED 2 PFSH: Medical History Diabetes Hyperlipemia Hypertension Heart disease Cancer Social History Smoking and tobacco/nicotine status: never used tobacco/nicotine Physical Exam 2 Const: GENERAL APPEARANCE: cooperative ORIENTATION/CONSCIOUSNESS: Yes awake, Yes oriented to person, Yes oriented to place and Yes oriented to time HENMT: COMMON NORMALS: normocephalic, atraumatic and hearing grossly normal bilaterally HEAD & SCALP: normocephalic and atraumatic Resp: COMMON NORMALS: normal respiratory effort, No retractions and No use of accessory muscles AUSCULTATION: rales Cardio: COMMON NORMALS: regular rhythm and No murmurs present (Cardio) R ATE: tachycardic RHYTHM: regular rhythm GI: COMMON NORMALS: Soft to palpation and No hepatosplenomegaly present A USCULTATION: Yes normoactive bowel sounds PALPATION: Yes Soft to palpation, No Tenderness to palpation present (GI), No Guarding due to palpation present (GI) and Yes No hepatosplenomegaly present Extremity: COMMON NORMALS: normal to inspection, capillary refill normal, no clubbing, cyanosis or edema, no calf tenderness and no pedal edema Neuro: SENSORIUM/ORIENTATION: Yes oriented to person, Yes oriented to place and Yes oriented to time Skin: COMMON NORMALS: no rashes or lesions noted GENERAL SKIN EXAM: no rashes or lesions noted Course 2 Vital Signs: Vital signs: Vital Signs Temperature 97.2 F L 06/25/24 05:39 Pulse Rate 79 06/25/24 10:20 Respiratory Rate 30 H 06/25/24 09:00 Blood Pressure 100/69 06/25/24 10:20 Pulse Oximetry 94 06/25/24 10:20 Oxygen Delivery Me thod Nasal Cannula 06/25/24 10:20 Oxygen Flow Rate 2 06/25/24 10:20 MDM - SOB/Dyspnea Medical Decision Making Initially presents tachycardic. Did not appear to be SVT suspect a flutter based on exam she was not a regular. We started on Cardizem once for her slow down if she did indeed have a flutter. She has been on anticoagulation in the past but she was told that she could stop it after her cardiac bypass she is not been on any anticoagulation since. We also given her 1 dose of IV metoprolol and her Cardizem and ranolazine. She is also been given Lasix. She appears to be in some decompensated heart failure. On x-ray question possible infiltrate because she has an elevated white count we will start IV Levaquin. Cultures and lactate done. Lactate 1.8. Patient did have slight increase in her troponin at +5.7 on the 2-hour delta likely from the A-flutter. Patient was started on heparin because she is in persistent a flutter with rate controlled. Her blood pressure did soften a bit when we got to 15 mg/h of the Cardizem with her rate controlled. Her Cardizem was titrated back down and we were able to maintain rate control blood pressure improved Family is requesting transfer to [place] because she has seen cardiology there in [facility] past[facility] they have agreed to transfer patient. Patient stable at the time of transfer. Medical Records I reviewed the patient's medical records. Lab Data I reviewed the patient's lab results. 06/25/24 05:50 06/25/24 05:50 Labs/Radiology: Radiology Impressions Chest X-Ray 06/25/24 05:48 IMPRESSION: CHF. Laboratory Results WBC 15.49 10^3/uL (3.29-11.43) H 06/25/24 05:50 RBC 4.62 10^6/uL (3.85-5.65) 06/25/24 05:50 Hgb 14.00 g/dL (11.27-16.99) 06/25/24 05:50 Hct 43.9 % (36-47) 06/25/24 05:50 MCV 95.0 fl (85-98) 06/25/24 05:50 MCH 30.3 pg (27-33) 06/25/24 05:50 MCHC 31.9 g/dL (30-55) 06/25/24 05:50 RDW 12.4 % (12.1-15.1) 06/25/24 05:50 Plt Count 287 10^3/cmm (157-399) 06/25/24 05:50 MPV 10.3 fL (7.4-10.4) 06/25/24 05:50 Neut % (Auto) 76.2 % 06/25/24 05:50 Lymph % (Auto) 15.2 % 06/25/24 05:50 [place] % (Auto) 6.4 % 06/25/24 05:50 Eos % (Auto) 1.3 % 06/25/24 05:50 Baso % (Auto) 0.6 % 06/25/24 05:50 Neut # (Auto) 11.80 10^3/uL (1.8-7.7) H 06/25/24 05:50 Lymph # (Auto) 2.4 10^3/uL (0.8-4.8) 06/25/24 05:50 [place] # (Auto) 1.0 10^3/uL (0.2-0.9) H 06/25/24 05:50 Eos # (Auto) 0.2 10^3/uL (0.0-0.8) 06/25/24 05:50 Baso # (Auto) 0.1 10^3/uL (0.0-0.1) 06/25/24 05:50 Nucleated RBC % (auto) 0 % 06/25/24 05:50 Nucleated RBCs # 0.0 /100WBC 06/25/24 05:50 ESR 10 mm/hr (0-15) 06/25/24 05:50 D-Dimer 0.97 ug/mLFEU (0-0.59) H 06/25/24 05:50 Specimen Type Arterial 06/25/24 05:56 Sample Site Radial, left 06/25/24 05:56 ABG pH 7.35 (7.35-7.45) 06/25/24 05:56 ABG pCO2 39.7 mmHg (35-45) 06/25/24 05:56 ABG pO2 85.5 mmHg (80.0-100.0) 06/25/24 05:56 ABG PO2/FiO2 Ratio 356 06/25/24 05:56 ABG HCO3 22.0 mmol/L (22-26) 06/25/24 05:56 ABG O2 Saturation 96.6 06/25/24 05:56 ABG Base Excess -3.3 mmol/L (-2.0-2.0) L 06/25/24 05:56 [place] Test Pos 06/25/24 05:56 A-a O2 Gradient 4.3 mmHg (5-10) L 06/25/24 05:56 Hematocrit 43.8 % (37-47) 06/25/24 05:56 Hgb O2 Saturation 95.5 % (95-100) 06/25/24 05:56 Carboxyhemoglobin 0.9 %THgb (0.4-20.1) 06/25/24 05:56 Methemoglobin 0.2 % (0.4-1.5) L 06/25/24 05:56 Total Hemoglobin 14.3 g/dL (12-16) 06/25/24 05:56 Sodium 140.0 mmol/L (131-143) 06/25/24 05:56 Potassium 3.8 mmol/L (3.5-5.0) 06/25/24 05:56 Glucose 276.0 mg/dL (70-115) H 06/25/24 05:56 Ionized Calcium 1.3 mmol/L (1.1-1.4) 06/25/24 05:56 O2 Delivery Device Nc 06/25/24 05:56 O2 Liters/Min 1.0 % 06/25/24 05:56 FiO2 24.0 % 06/25/24 05:56 Cold Roll Operator ID Ed 06/25/24 05:56 Sodium 139 mmol/L (136-145) 06/25/24 05:50 Potassium 4.1 mmol/L (3.5-5.1) 06/25/24 05:50 Chloride 104 mmol/L (98-107) 06/25/24 05:50 Carbon Dioxide 23 mmol/L (22-29) 06/25/24 05:50 Anion Gap 16.1 (5-19) 06/25/24 05:50 BUN 11 mg/dL (8-23) 06/25/24 05:50 Creatinine 0.6 mg/dL (0.5-0.9) 06/25/24 05:50 GFR Calculation Not Reportable 06/25/24 05:50 Glucose 270 mg/dL (65-115) H 06/25/24 05:50 Calculated Osmolality 297 mOsm/kg (285-295) H 06/25/24 05:50 Lactic Acid 1.8 mmol/L (0.5-2.2) 06/25/24 05:50 Calcium 9.6 mg/dL (8.5-10.5) 06/25/24 05:50 Total Bilirubin 1.0 mg/dL (0.15-1.2) 06/25/24 05:50 AST 24 U/L (0-32) 06/25/24 05:50 ALT 30 U/L (0-33) 06/25/24 05:50 Alkaline Phosphatase 100 U/L (35-105) 06/25/24 05:50 Troponin T Baseline 10 ng/L (0-10) 06/25/24 05:50 Troponin T 120 Minute 15.47 ng/L (0-10) H 06/25/24 07:42 Delta Troponin T 5.47 ABS# (0-10) 06/25/24 07:42 C-Reactive Protein 4.2 mg/L (0.0-4.9) 06/25/24 05:50 NT-Pro-B Natriuret Pep 1693 pg/mL (0-450) H 06/25/24 05:50 Total Protein 7.1 g/dL (6.6-8.7) 06/25/24 05:50 Albumin 4.2 g/dL (3.5-5.2) 06/25/24 05:50 Globulin 2.9 g/dL (1.3-4.6) 06/25/24 05:50 TSH 2.50 uIU/mL (0.27-4.20) 06/25/24 05:50 Urine Color Yellow (Yellow) 06/25/24 05:45 Urine Appearance Clear (CLEAR) 06/25/24 05:45 Urine pH 5.0 (5-7) 06/25/24 05:45 Ur Specific [place] 1.017 (1.005-1.030) 06/25/24 05:45 Urine Protein 1+ (Negative) A 06/25/24 05:45 Urine Glucose (UA) 3+ (Normal) H 06/25/24 05:45 Urine Ketones Negative (Negative) 06/25/24 05:45 Urine Blood Negative (Negative) 06/25/24 05:45 Urine Nitrate Negative (Negative) 06/25/24 05:45 Urine Bilirubin Negative (Negative) 06/25/24 05:45 Urine Urobilinogen 1.0 mg/dL (Negative) 06/25/24 05:45 Ur Leukocyte Esterase Negative (Negative) 06/25/24 05:45 Urine RBC 0-2 /hpf (0-2) 06/25/24 05:45 Urine WBC 0-5 /hpf (0-5) 05/15/25 05:45 Ur Squamous Epith Cells 0-5 /hpf (0-5) 06/25/24 05:45 Amorphous Sediment Not Reportable 06/25/24 05:45 Urine Bacteria None seen /hpf (NONE) 06/25/24 05:45 Hyaline Casts 0.81 /lpf 06/25/24 05:45 All radiology interpretation(s) finalized by discharge Critical Care Time 2 Critical Care Time: Critical Care Time: Yes Total Critical Care Time: 45 Attestation: The high probability of a clinically significant, sudden or life threatening deterioration of the patient's cardiovascular respiratory system(s) required my full and direct attention, intervention and personal management. The critical care time is as shown. This time is in addition to time spent performing any reported procedures but includes the following: [x] Data and vital sign review and interpretation [x] Patient assessment, examination and intervention [x] Documentation [x] Medication orders and management Discharge Plan Discharge Patient Disposition: Xfer Short-Term Hosp Clinical Impression: Congestive heart failure, Atrial flutter Condition: Stable Referrals: Maurilio Brooks MD [Primary Care Provider, Internal Medicine] Print Language: Kuwaiti Coding Level of Care Code ED Deputy Chief Executive for Jessica Reynolds
--- NOTE | 2024-06-25 05:46 | ECG_ITS ---
[facility] Test Date: 2024-06-25 Pat Name: Valerie Alcantara Department: Room: Gender: Female [employer]: : 1945 Requested By: Julius Kuhn Order Number: [id number] Reading MD: ALICE PABON Measurements Intervals [place] Rate: 143 P: 0 CT: 0 QRS: 43 QRSD: 109 T: -44 QT: 295 QTc: 456 Interpretive Statements sinus TACHYCARDIA NONSPECIFIC ST & T-WAVE ABNORMALITY Compared to ECG 04/08/2019 21:02:04 T-wave abnormality now present Sinus rhythm no longer present Myocardial infarct finding no longer present Electronically Signed On 06-25-2024 23:30:32 CDT by ALICE PABON [email or web address]
--- NOTE | 2024-06-25 05:48 | XRR_ITS ---
PROCEDURE INFORMATION: Exam: XR Chest Exam date and time: 06/25/2024 5:51 AM Age: 79 years old Clinical indication: Dyspnea; Prior surgery; Surgery date: 6+ months; Surgery type: Cabg TECHNIQUE: Imaging protocol: Radiologic exam of the chest. Views: 1 view. COMPARISON: CR XR chest 2V* [id number] 04/20/2020 3:38 PM FINDINGS: Tubes, catheters and devices: Loop recorder projects over the left chest. Lungs: Increasing interstitial edema. Mild pulmonary infiltrates greatest in the left lower lobe. Pleural spaces: Unremarkable. No definite pleural effusion. No pneumothorax. Heart/Mediastinum: Status post CABG. Vasculature: Mild cardiomegaly and uncoiling of the thoracic aorta. Bones/joints: Unremarkable. Other findings: Cephalization of blood flow. Mild congestive heart failure is present. XR/XR chest 1V portable [id number] IMPRESSION: CHF.
[2024-06-25] MEDS: aspirin 81 mg Chew Tablet 324 MG PO (05:56)
[2024-06-25 05:59] LABS: Basophils # 0.1 10^3/uL (0.0-0.1); Basophils % 0.6 %; Eosinophils # 0.2 10^3/uL (0.0-0.8); Eosinophils % 1.3 %; Hematocrit 43.9 % (36-47); Lymphocytes # 2.4 10^3/uL (0.8-4.8); Lymphocytes % 15.2 %; Mean Corpuscular HGB Conc 31.9 g/dL (30-55); Mean Corpuscular Hemoglobin 30.3 pg (27-33); Mean Platelet Volume 10.3 fL (7.4-10.4); Monocytes % 6.4 %; Neutrophils % 76.2 %; Nucleated Red Blood Cells % 0 %; Platelet Count 287 10^3/cmm (157-399); Red Blood Count 4.62 10^6/uL (3.85-5.65); Red Cell Distribution Width 12.4 % (12.1-15.1); White Blood Count 15.49 10^3/uL (3.29-11.43)
[2024-06-25 06:04] LABS: Erythrocyte Sedimentation Rate 10 mm/hr (0-15)
[2024-06-25] MEDS: carvedilol 25 mg Tablet PO (06:04)
[2024-06-25] MEDS: isosorbide mononitrate ER 30 mg Tablet PO (06:04)
[2024-06-25] MEDS: ranolazine (12HR) 500 mg Tablet PO (06:04)
[2024-06-25 06:06] LABS: ABG PCO2 39.7 mmHg (35-45); ABG PH Result 7.35 (7.35-7.45); Arterial Blood Gas Hematocrit 43.8 % (37-47); Base Excess ABG -3.3 mmol/L (-2.0-2.0); Blood Gas Allen Test Pos; Blood Gas Sample Type Arterial; Carboxyhemoglobin 0.9 %THgb (0.4-20.1); HGB O2 Sat 95.5 % (95-100); Ionized Calcium Level - ABG 1.3 mmol/L (1.1-1.4); Methemoglobin 0.2 % (0.4-1.5); Oxygen Saturation ABG 96.6; PO2 ABG 85.5 mmHg (80.0-100.0); Potassium Level - ABG 3.8 mmol/L (3.5-5.0); Total Hemoglobin 14.3 g/dL (12-16)
[2024-06-25 06:07] LABS: Alveolar-Arterial Oxygen Gradi 4.3 mmHg (5-10); Blood Gas Operator Identificat ED; Blood Gas Sample Site Radial, left; Oxygen Device NC; PO2 FiO2 Ratio Arterial Blood 356
[2024-06-25] MEDS: metoprolol tartrate 1 mg/1 mL SDV 5 mL 2.5 MG IVP (06:08)
[2024-06-25] MEDS: FUROsemide 10 mg/mL SDV 4mL 40 MG IVP (06:11)
[2024-06-25 06:14] LABS: Lactic Sepsis W/Reflex 1.8 mmol/L (0.5-2.2)
[2024-06-25 06:16] LABS: Troponin(5th) Baseline 10 ng/L (0-10)
[2024-06-25 06:21] LABS: D Dimer 0.97 ug/mLFEU (0-0.59)
[2024-06-25 06:23] LABS: C Reactive Protein 4.2 mg/L (0.0-4.9); NT Pro B Type Natriuretic Pept 1693 pg/mL (0-450)
[2024-06-25] MEDS: dilTIAZem 5 mg/mL SDV 5 mL 10 MG IVP (06:23)
[2024-06-25 06:26] LABS: Alanine Aminotransferase 30 U/L (0-33); Albumin Level 4.2 g/dL (3.5-5.2); Alkaline Phosphatase 100 U/L (35-105); Anion Gap 16.1 (5-19); Aspartate Amino Transferase 24 U/L (0-32); Blood Urea Nitrogen 11 mg/dL (8-23); Calcium 9.6 mg/dL (8.5-10.5); Carbon Dioxide 23 mmol/L (22-29); Chloride 104 mmol/L (98-107); Creatinine Clr Calc Pharmacy 52.8013; Globulin 2.9 g/dL (1.3-4.6); Glucose 270 mg/dL (65-115); Osmolality Calculated 297 mOsm/kg (285-295); Potassium 4.1 mmol/L (3.5-5.1); Sodium 139 mmol/L (136-145); Total Protein 7.1 g/dL (6.6-8.7)
[2024-06-25] MEDS: dilTIAZem 100 MG in sodium chloride 0.9% (add-van) 100 ML IV (06:27)
[2024-06-25 06:56] LABS: Bilirubin Urine Negative (Negative); Blood Urine Negative (Negative); Glucose Urine UA 3+ (Normal); Ketones Urine Negative (Negative); Leukocyte Esterase Urine Negative (Negative); Nitrate Urine Negative (Negative); Protein Urine 1+ (Negative); Specific Gravity, Urine 1.017 (1.005-1.030); Urine Appearance Clear (CLEAR); Urine Color Yellow (Yellow)
--- NOTE | 2024-06-25 06:56 | PC.NURSE ---
Assumed care of patient from ADOLFO Gallardo. Introduced myself to pt and increased her cardizem drip.
[2024-06-25 06:58] LABS: Add Urine Microscopic? YES; Bacteria Urine None Seen /hpf; Hyaline Casts Urine 0.81 /lpf; RBC Urine 0-2 /hpf (0-2); Squamous Epithelial Cell Urine 0-5 /hpf (0-5); WBC Urine 0-5 /hpf (0-5)
[2024-06-25] MEDS: levofloxacin-dextrose 5 % 500 MG/100 ML PREMIX 100 MG IV (07:31)
--- NOTE | 2024-06-25 07:38 | PC.NURSE ---
Rounded on pt, placed pt on 2 liter of oxygen per Dr. Anderson, increased cardizem and started 2nd IV.
--- NOTE | 2024-06-25 08:00 | ECG_ITS ---
[facility] Test Date: 2024-06-25 Pat Name: Valerie Alcantara Department: Room: Gender: Female [employer]: : 1945 Requested By: Julius Kuhn Order Number: [id number] Reading MD: ALICE PABON Measurements Intervals [place] Rate: 80 P: 0 ID: 0 QRS: 34 QRSD: 113 T: 158 QT: 437 QTc: 506 Interpretive Statements ATRIAL FLUTTER/TACHYCARDIA MODERATE INTRAVENTRICULAR CONDUCTION DELAY [110+ ms QRS DURATION] ST DEVIATION AND MARKED T-WAVE ABNORMALITY, CONSIDER ANTEROLATERAL ISCHEMIA [-0.5+ mV T-WAVE IN I/aVL/V3-V6] Compared to ECG 06/25/2024 05:46:26 Intraventricular conduction delay now present Possible ischemia now present Supraventricular tachycardia no longer present T-wave abnormality still present Electronically Signed On 06-25-2024 23:38:49 CDT by ALICE PABON [email or web address] [id number]
[2024-06-25 08:21] LABS: Troponin 5 2HR 15.47 ng/L (0-10); Troponin 5 2HR Delta 5.47 ABS# (0-10)
[2024-06-25] MEDS: heparin drip 25,000 UNIT/500 ML PREMIX 21 UNIT IV (09:21)
[2024-06-25] MEDS: heparin 5,000 unit/mL INJ 1 mL IVP (09:22)
--- NOTE | 2024-06-25 10:21 | PC.NURSE ---
Called report @ [phone] to Joseph Doyle RN @ [facility]. Pt going to room 9197 - [phone]
--- NOTE | 2024-06-25 11:49 | PC.NURSE ---
pt report given to [facility], no further questions.
== END 2024-06-25 11:57 | disposition short-term general hospital (02) ==
PROVIDERS: Emergency Provider Family Medicine; PCP Internal Medicine
DX: I48.92 Unspecified atrial flutter (principal); E78.5 Hyperlipidemia, unspecified; E11.9 Type 2 diabetes mellitus without complications; I11.0 Hypertensive heart disease with heart failure; I50.9 Heart failure, unspecified
CPT/HCPCS: 36415; 36600; 51702; 71045; 80051; 80053; 81001; 82330; 82805; 83605; 83880; 84443; 84484; 85025; 85378; 85651; 86140; 87040; 93005; 96365; 96366; 96367; 96375; 99285; J1644; J1940; J1956; J3490; J9999